=== PATIENT | male | born 1955 | race African-American/Black ===

== ENCOUNTER 2017-06-21 14:08 | Emergency (ER) | payer OTHER ==
--- NOTE | 2017-06-21 14:57 | RAD REPORT ---
EXAM DESCRIPTION: RAD - Shoulder Left 2 View - 06/21/2017 2:45 pm CLINICAL HISTORY: Severe pain. COMPARISON: None. FINDINGS: Moderate AC joint degenerative changes are present. No acute fracture or dislocation seen. No aggressive marrow lesion. IMPRESSION: Moderate AC joint degenerative changes.
--- NOTE | 2017-06-21 15:01 | ER ---
Nurse's Notes 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 Transition of care: patient was not received from another setting of care. Onset of symptoms was June 21, 2017. Care prior to arrival: None. 14:16 Method Of Arrival: Ambulatory la1 14:16 Acuity: [place] 4 la1 Historical: - Allergies: 14:17 No Known Allergies; la1 - PMHx: 14:17 Hypertension; la1 - Immunization history:: Adult Immunizations up to date. - Social history:: Smoking status: Patient uses tobacco products, smokes one-half pack cigarettes per day. Screenin:05 Abuse screen: Denies threats or abuse. Denies injuries from another. Nutritional aj screening: No deficits noted. Tuberculosis screening: No symptoms or risk factors identified. Fall Risk None identified. Assessment: 15:03 General: Appears in no apparent distress. comfortable, Behavior is calm, cooperative, aj appropriate for age. Pain: Complains of pain in left shoulder and left clavicle. Neuro: Level of Consciousness is awake, alert, obeys commands, Oriented to person, place, time, situation. Respiratory: Airway is patent Respiratory effort is even, unlabored, Respiratory pattern is regular, symmetrical. Derm: Skin is intact, is healthy with good turgor, Skin is pink, warm \T\ dry. normal. Musculoskeletal: Circulation, motion, and sensation intact. Range of motion: intact in all extremities, Reports pain in left shoulder and left clavicle. Vital Signs: 14:17 BP 135 / 99; Pulse 81; Resp 16; Temp 97.6(TE); Pulse Ox 100% on R/A; Weight 56.7 kg; la1 Height 5 ft. 5 in. (165.10 cm); 15:03 BP 136 / 95; Pulse 84; Resp 17; Pulse Ox 99% on R/A; aj 14:17 Body Mass Index 20.80 (56.70 kg, 165.10 cm) la1 ED Course: 14:13 Patient arrived in ED. mr 14:16 Triage completed. la1 14:17 Jud Mathew FNP-C is [facility]. kb 14:17 Santi Tang MD is Attending Physician. kb 14:17 Arm band placed on left wrist. la1 14:33 Sandy Carney, RN is Primary Nurse. aj 14:42 X-ray completed. Portable x-ray completed in exam room. Patient tolerated procedure sw well. 14:43 Shoulder Left (2 View) XRAY In Process Unspecified. EDMS 15:05 Patient has correct armband on for positive identification. aj 15:05 No provider procedures requiring assistance completed. Patient did not have IV access aj during this emergency room visit. 15:05 Sling applied to left arm. aj Administered Medications: No medications were administered Outcome: 15:01 Discharge ordered by MD. kb 15:05 Discharged to home ambulatory, with family. aj 15:05 Condition: good 15:05 Discharge instructions given to patient, Instructed on discharge instructions, follow up and referral plans. Demonstrated understanding of instructions, follow-up care. 15:08 Patient left the ED. aj Signatures: Dispatcher [employer] EDSC Jud Mathew FNP-C FNP-CkSandy Pizano, RN RN Faina Hawley Lee, RN RN Kristen Santos
--- NOTE | 2017-06-21 15:02 | EDPHYS ---
Physician Documentation [facility] Name: Oscar Younger Age: 62 yrs Sex: Male : 1955 Arrival Date: 06/21/2017 Time: 14:13 Bed 26 Private MD: ED Physician Santi Tang HPI: 06/21 14:40 This 62 yrs old Black Male presents to ER via Ambulatory with complaints of Shoulder kb Pain, Clavicle Injury. 14:40 The patient or guardian complains of decreased range of motion, an injury, pain, that kb is acute, tenderness. left shoulder and left clavicle. Context: The problem was sustained outdoors, at work, resulted from pulling chain, The patient reports no decreased range of motion. The patient reports no obvious deformity. Onset: The symptoms/episode began/occurred yesterday. Modifying factors: the symptoms are alleviated by nothing. The symptoms are aggravated by movement. Associated signs and symptoms: Pertinent positives: severe pain, Pertinent negatives: abdominal pain, chest pain, diaphoresis, dyspnea, neck pain, shortness of breath, tingling. Severity of symptoms: At their worst the symptoms were moderate, in the emergency department the symptoms are unchanged. Treatment prior to arrival includes: no previous treatment. The patient has not experienced similar symptoms in the past. The patient has not recently seen a physician. Historical: - Allergies: 14:17 No Known Allergies; la1 - PMHx: 14:17 Hypertension; la1 - Immunization history:: Adult Immunizations up to date. - Social history:: Smoking status: Patient uses tobacco products, smokes one-half pack cigarettes per day. ROS: 14:39 Constitutional: Negative for fever, chills, and weight loss, Cardiovascular: Negative kb for chest pain, palpitations, and edema, Respiratory: Negative for shortness of breath, cough, wheezing, and pleuritic chest pain, Abdomen/GI: Negative for abdominal pain, nausea, vomiting, diarrhea, and constipation, Skin: Negative for injury, rash, and discoloration, Neuro: Negative for headache, weakness, numbness, tingling, and seizure. 14:39 MS/extremity: Positive for injury or acute deformity, decreased range of motion, pain, swelling, tenderness, of the left clavicle and anterior aspect of left shoulder. Exam: 14:39 Constitutional: This is a well developed, well nourished patient who is awake, alert, kb and in no acute distress. Head/Face: Normocephalic, atraumatic. Chest/axilla: Normal chest wall appearance and motion. Nontender with no deformity. No lesions are appreciated. Cardiovascular: Regular rate and rhythm with a normal S1 and S2. No gallops, murmurs, or rubs. Normal PMI, no JVD. No pulse deficits. Respiratory: Lungs have equal breath sounds bilaterally, clear to auscultation and percussion. No rales, rhonchi or wheezes noted. No increased work of breathing, no retractions or nasal flaring. Abdomen/GI: Soft, non-tender, with normal bowel sounds. No distension or tympany. No guarding or rebound. No evidence of tenderness throughout. Skin: Warm, dry with normal turgor. Normal color with no rashes, no lesions, and no evidence of cellulitis. Neuro: Awake and alert, GCS 15, oriented to person, place, time, and situation. Cranial nerves II-XII grossly intact. Motor strength 5/5 in all extremities. Sensory grossly intact. Cerebellar exam normal. Normal gait. 14:39 Musculoskeletal/extremity: Extremities: grossly normal except: noted in the anterior aspect of left shoulder and left clavicle: decreased ROM, pain, swelling, tenderness, ROM: intact in all extremities, Circulation is intact in all extremities. Sensation intact. Vital Signs: 14:17 BP 135 / 99; Pulse 81; Resp 16; Temp 97.6(TE); Pulse Ox 100% on R/A; Weight 56.7 kg; la1 Height 5 ft. 5 in. (165.10 cm); 15:03 BP 136 / 95; Pulse 84; Resp 17; Pulse Ox 99% on R/A; aj 14:17 Body Mass Index 20.80 (56.70 kg, 165.10 cm) la1 MDM: 14:18 Patient medically screened. kb 14:40 Data reviewed: vital signs, nurses notes. Data interpreted: Pulse oximetry: on room air kb is 100 %. Interpretation: normal. 15:00 Counseling: I had a detailed discussion with the patient and/or guardian regarding: the kb historical points, exam findings, and any diagnostic results supporting the discharge/admit diagnosis, radiology results, the need for outpatient follow up, a family practitioner, to return to the emergency department if symptoms worsen or persist or if there are any questions or concerns that arise at home. 06/21 14:24 Order name: Shoulder Left (2 View) XRAY; Complete Time: 14:58 kb Administered Medications: No medications were administered Disposition: 15:22 Co-signature as Attending Physician, Santi Tang MD I agree with the assessment and tx plan of care. Disposition: 06/21/17 15:01 Discharged to Home. Impression: Pain in left shoulder. - Condition is Stable. - Discharge Instructions: Shoulder Pain, [id number]. - Medication Reconciliation Form, Thank You Letter, Antibiotic Education, Prescription Opioid Use form. - Follow up: Emergency Department; When: As needed; Reason: Worsening of condition. Follow up: Private Physician; When: 2 - 3 days; Reason: Recheck today's complaints, Continuance of care, Re-evaluation by your physician. Signatures: Dispatcher [employer] Jud Awan, [employer]-Sandy Sauer RN RN aj Attema, Lee, RN RN la1 Santi Tang MD MD tx
== END 2017-06-21 15:08 | disposition home or self-care (01) ==
LOC: ER 14:08
DX: M25.512 Pain in left shoulder (principal)
CPT/HCPCS: 99283